=== PATIENT | female | born 1955 ===

== ENCOUNTER → 2019-11-30 | Outpatient (CLI) | payer BC ==
[2019-11-30 10:42] LABS: African American GFR (CKD) >90 (>60 ml/min/1.73 sqM); Blood Urea Nitrogen 13 mg/dL (7-17); Non-African American GFR(CKD) >90 (>60 ml/min/1.73 sqM)
--- NOTE | 2019-11-30 12:38 | CT ---
EXAMINATION TYPE: CT angio abd aorta w/Runoff DATE OF EXAM: 11/30/2019 HISTORY: abdominal aortic aneurysm, claudication CT DLP: 1101.8mGycm Automated Exposure Control for Dose Reduction was Utilized. CONTRAST: CT scan of the abdomen and pelvis is performed without and with IV Contrast, patient injected with 12 5 mL of Isovue 370. Three-dimensional reconstructions performed on an alternate workstation. Exam per formed pre and postcontrast COMPARISON: None FINDINGS: LUNG BASES: No significant abnormality is appreciated. LIVER/GB: The liver is enlarged. The gallbladder is unremarkable PANCREAS: No significant abnormality is seen. SPLEEN: Enlarged ADRENALS: Left adrenal mass shows mixed attenuation KIDNEYS, may represent adenoma, MRI could be performed for additional evaluation. Alternatively consi rosa follow-up: No significant abnormality is seen. BOWEL: No significant abnormality is seen. UTERUS/ADNEXA: Not seen. LYMPH NODES: No greater than 1cm abdominal or pelvic lymph nodes are appreciated. OSSEOUS STRUCTURES: Degenerative disc disease present in the lumbar spine. Aorta: There is atheromatous change the aorta. There is a luminal calcification present in the infrar enal location suggesting possible chronic dissection, the aorta is occluded in the infrarenal locatio n as well as aneurysmal measuring 3.7 cm. Common iliac arteries are also occluded. Aorta is patent an d the descending portion in the thorax as well as in the abdomen to the level of the infrarenal locat ion. The inferior mesenteric artery, celiac axis are patent, renal arteries are patent. Luminal paten cy of the abdominal aorta is diminutive, there is luminal plaque to the level of lumbar collaterals a t approximately L3-4. There is reconstitution of the external iliac arteries via the internal iliac a rteries. The external iliac artery somewhat diminutive, the common femoral, deep and superficial femo ral arteries are patent. Popliteal arteries are patent. Trifurcation vessels are also patent. IMPRESSION: Aortic occlusion as described. Additional findings above. Splenomegaly.
== END | disposition home or self-care (01) ==
LOC: RADCTMAIN 10:02
PROVIDERS: ATTEND Surgery
DX: I71.2 Thoracic aortic aneurysm, without rupture (principal); I74.3 Embolism and thrombosis of arteries of the lower extremities
CPT/HCPCS: 82565; 84520; 75635; 36415; Q9967